=== PATIENT | female | born 1945 | race Caucasian/White ===

== ENCOUNTER 2018-09-30 10:12 | Emergency (ER) | payer MEDICARE, BC ==
[~2018-09-30] VITALS: Ht 160 cm; Wt 75.0 kg
[~2018-09-30 10:12] MED LIST: IMMU2VIA SQ; VALS80TA2 PO
[2018-09-30 10:37] VITALS: BP 182/67
--- NOTE | 2018-09-30 13:35 | NUR ---
Pt still awaiting MD. Pts foot elevated.
== END 2018-09-30 14:10 | disposition home or self-care (01) ==
LOC: ER 10:13
DX: S92.112A Displaced fracture of neck of left talus, initial encounter for closed fracture (principal); Z88.1 Allergy status to other antibiotic agents; Z88.8 Allergy status to other drugs, medicaments and biological substances; W18.30XA Fall on same level, unspecified, initial encounter; Y93.89 Activity, other specified; Y92.89 Other specified places as the place of occurrence of the external cause; Y99.8 Other external cause status
CPT/HCPCS: 29515; 73630; 99284

== ENCOUNTER 2021-10-31 06:13 | Day surgery (SDC) | payer MEDICARE, OTHER ==
[2021-10-31] VITALS (12 sets, daily range): BP systolic 115–169; BP diastolic 47–76
[~2021-10-31] VITALS: Ht 160 cm; Wt 74.9 kg
[2021-10-31] MEDS ORDERED: normal saline 1000ml 1,000 ML IV SCH (06:35)
[2021-10-31] MEDS ORDERED: SPIR25TA5 PO (06:37)
[2021-10-31] MEDS ORDERED: MONT-40 PO (06:37)
[2021-10-31] MEDS ORDERED: VITA-268 PO (06:37)
[2021-10-31] MEDS ORDERED: OMEP20CA16 PO (06:37)
[2021-10-31 07:23] LABS: BASOPHILS # (AUTO) 0.1 X10'3 (0-0.2); EOSINOPHILS # (AUTO) 0.1 X10'3 (0-0.9); EOSINOPHILS % (AUTO) 1.5 % (0-6); HEMATOCRIT 38.5 % (35.0-45.0); HEMOGLOBIN 12.9 g/dl (12.0-16.0); LYMPHOCYTES # (AUTO) 1.5 X10'3 (1.1-4.8); LYMPHOCYTES % (AUTO) 29.8 % (21-51); MEAN CORPUSCULAR HEMOGLOBIN 30.5 PG (27.0-31.0); MEAN CORPUSCULAR HGB CONC 33.6 g/dL (33.0-36.5); MEAN CORPUSCULAR VOLUME 90.7 FL (78-98); MEAN PLATELET VOLUME 9.5 FL (7.4-10.4); MONOCYTES # (AUTO) 0.5 X10'3 (0-0.9); MONOCYTES % (AUTO) 9.2 % (2-12); NEUTROPHILS % (AUTO) 58.5 % (42-75); PLATELET COUNT 185 X10'3 (140-440); RED BLOOD COUNT 4.24 X10'6 (4.20-5.60); RED CELL DISTRIBUTION WIDTH 12.9 % (11.5-14.5); WHITE BLOOD COUNT 5.2 X10'3 (4.5-11.0)
[2021-10-31 07:52] LABS: ALBUMIN 3.7 G/DL (3.4-5.0); ANION GAP 11 (8-16); BLOOD UREA NITROGEN 13 MG/DL (7-18); BUN/CREATININE RATIO 14.4 (6.6-38.0); CHLORIDE 109 MMOL/L (99-107); GLUCOSE 81 MG/DL (70-104); MAGNESIUM 2.3 MG/DL (1.5-2.4); POTASSIUM 3.9 MMOL/L (3.5-5.1); SODIUM 147 MMOL/L (135-145); TOTAL CARBON DIOXIDE 26.9 MMOL/L (24-32); eGFR 61 ML/MIN
[2021-10-31] MEDS ORDERED: midazolam 1 mg/ML 2ml injection ONE ×2 (08:34→09:49)
[2021-10-31] MEDS ORDERED: LIDOCAINE 2% w/EPI 1:100:000 30mL injection MDV**cath lab 1 only ONE (08:34)
[2021-10-31] MEDS ORDERED: fentaNYL/PF 50MCG/1 ML 2ML syringe ONE (08:34)
[2021-10-31] MEDS ORDERED: vancomycin 1,000mg inj ONE (08:35)
[2021-10-31] MEDS ORDERED: normal saline 500ml IV soln 500 ML IV SCH (10:35)
[2021-10-31] MEDS ORDERED: normal saline 500ml IV soln 400 ML IV SCH (10:35)
[2021-10-31] MEDS ORDERED: VANCOMYCIN 1GM/200ML IVPB 200 ML IV ONE (10:40)
== END 2021-10-31 13:10 | disposition home or self-care (01) ==
LOC: SSTAY O 06:13
PROVIDERS: ATTEND Internal Medicine Cardiovascular Disease
DX: Z45.09 Encounter for adjustment and management of other cardiac device (principal); I10 Essential (primary) hypertension; Z79.899 Other long term (current) drug therapy; Z79.01 Long term (current) use of anticoagulants; Z90.710 Acquired absence of both cervix and uterus; Z98.890 Other specified postprocedural states; Z88.2 Allergy status to sulfonamides; Z88.1 Allergy status to other antibiotic agents; Z88.8 Allergy status to other drugs, medicaments and biological substances; Z82.49 Family history of ischemic heart disease and other diseases of the circulatory system
CPT/HCPCS: 33286; 36415; 80048; 83735; 85025; 85610; 93005; 99152; J2250; J3010; J3370; J3490; J7040; A4620; A6258